=== PATIENT | female | born 1950 | race Caucasian/White ===

== ENCOUNTER 2020-09-21 11:38 | Outpatient (CLI) | payer MEDICARE, OTHER, SELFPAY ==
--- NOTE | 2020-09-21 11:44 | ECG_ITS ---
Measurements Intervals [place] Rate: 64 P: 52 MN: 172 QRS: 34 QRSD: 97 T: 37 QT: 410 QTc: 424 Interpretive Statements SINUS RHYTHM POSSIBLE LEFT ATRIAL ENLARGEMENT INCOMPLETE RIGHT BUNDLE BRANCH BLOCK DELAYED PRECORDIAL R/S TRANSITION BORDERLINE T WAVE ABNORMALITY- ANTERIOR LEADS BORDERLINE ECG Electronically Signed On 09-21-2020 12:04:19 DRAGLINE OPERATOR HELPER by Moody Chaidez D.O.
[2020-09-21 12:12] LABS: Hematocrit 37.8 % (37.0-47.0)
== END 2020-09-21 11:39 | disposition home or self-care (01) ==
LOC: ANHSURGERY 11:44
PROVIDERS: PCP Family Medicine; Visit Provider Obstetrics & Gynecology
DX: N95.0 Postmenopausal bleeding (principal); I10 Essential (primary) hypertension; Z01.818 Encounter for other preprocedural examination; I45.10 Unspecified right bundle-branch block
CPT/HCPCS: 36415; 85014; 85018; 93005

== ENCOUNTER → 2020-09-25 03:24 | Outpatient (CLI) | payer MEDICARE, OTHER, SELFPAY ==
[2020-09-25 20:35] LABS: SARS-CoV-2 RNA PCR Negative
== END ==
PROVIDERS: PCP Family Medicine; Visit Provider Obstetrics & Gynecology
DX: Z01.812 Encounter for preprocedural laboratory examination (principal); Z20.822 Contact with and (suspected) exposure to COVID-19
CPT/HCPCS: C9803; U0003; U0005

== ENCOUNTER 2020-09-28 01:22 | Day surgery (SDC) | payer MEDICARE, OTHER, SELFPAY ==
[2020-09-20 16:18] VITALS: BMI 25.8
--- NOTE | 2020-09-25 10:01 | PM.IMHP ---
H&P: HPI History of Present Illness Date/Time: 09/25/20 10:01 Chief Complaint: post menopausal bleeding Narrative: Lucia Davis is a 70 year old female is admitted for hysteroscopy and dilatation and curettage. She had some postmenopausal bleeding. She underwent replacement and in light of whose bleeding she is admitted to rule out pathologic cause. She has received the ACOG handout entitled hysteroscopy as well as dilatation curettage respectively. She had all questions answered. She asked to proceed Review of Systems Review of Systems: All systems reviewed & are unremarkable except as noted in HPI and below PMFSH Past Medical History Medical History Arthritis Body mass index (bmi) 28.0-28.9, adult (02/26/17) Ganglion cyst of left foot Hypothyroidism (acquired) Other disorders of lung Unspecified arthropathy, ankle and foot Surgical History Surgical History S/P cervical spinal fusion Family History Family History Father Family history of arthritis Family history of cataracts Family history of kidney disease Family history of dementia, Onset Age: 89 Mother Family history of chronic obstructive pulmonary disease, Onset Age: 85 Family history of osteoporosis Depression Asthma Cerebrovascular accident Other Hypertension Social History Social History Smoking status: Never smoker Alcohol intake: current Drinks per week: 5 Spiritual care concerns: No Meds Home Medications and Allergies Home Medications Medication Instructions Recorded Confirmed Type albuterol sulfate 90 mcg/actuation 1 puff INHALATION Q4H PRN 08/24/19 09/20/20 History aerosol inhaler alprazolam 0.25 mg tablet 0.25 mg PO DAILY 08/24/19 09/20/20 History atomoxetine 60 mg capsule 60 mg PO DAILY 08/24/19 09/20/20 History lisinopril 30 mg tablet 30 mg PO DAILY 08/24/19 09/20/20 History Synthroid 75 mcg tablet 75 mcg PO QAM 90 Days #90 tablet NS 01/11/20 09/20/20 Rx bupropion HCl 300 mg 24 hr tablet, 300 mg PO QAM 01/11/20 09/20/20 History extended release budesonide-formoterol HFA 160 See Rx Instructions .ROUTE 07/09/20 09/20/20 Rx mcg-4.5 mcg/actuation aerosol .COMPLEX 90 Days #30.6 g inhaler calcium carbonate-vitamin D3 1 tablet PO DAILY 09/20/20 09/20/20 History [Calcium + D] [id number]-[id number] 1 cap PO DAILY 09/20/20 09/20/20 History [krill oil] milk thistle 180 mg PO DAILY 09/20/20 09/20/20 History montelukast 10 mg PO HS 09/20/20 09/20/20 History multivitamin,vb-pylq-tsbrufwy 1 tablet PO DAILY 09/20/20 09/20/20 History [Complete Multivitamin] omeprazole 20 mg PO DAILY 09/20/20 09/20/20 History Allergies Allergy/AdvReac Type Severity Reaction Status Date / Time Sulfa (Sulfonamide Allergy Unknown Nausea and Verified 09/20/20 15:50 Antibiotics) Vomiting Exam Const: General: no acute distress Eyes: General: appearance normal, both eyes and all related structures Neck: Neck: supple and no JVD Thyroid: thyroid normal Resp: Effort & Inspection: normal respiratory effort Auscultation: clear to auscultation bilaterally Cardio: Rate: regular rate Rhythm: regular rhythm GI: Inspection: non-distended GI Palp: Yes Soft to palpation, No Tenderness to palpation present (GI) and No Guarding due to palpation present (GI) Auscultation: normal bowel sounds : General: Yes bladder normal to palpation External Female Exam: normal external appearance Speculum Exam - Vagina: normal vaginal discharge and No vaginal bleeding Speculum Exam - Cervix: nontender Bimanual exam- vagina & uterus: bladder normal to palpation and No Cervical tenderness present OB/external & speculum: No vaginal bleeding Skin: General skin exam:
--- NOTE | 2020-09-28 06:33 | WPDHPUPDATE1 ---
History and Physical Update Update Date/Time: 09/28/20 06:33 History and Physical has been reviewed, including an updated exam of the patient. There are NO changes in the patient's condition. Risks, benefits, and alternatives have been discussed and questions answered. Patient agrees to proceed with procedure.
[2020-09-28 07:37] VITALS: BP 150/73; PULSE 72; RESP 20; TEMP 36.6; O2SAT 100
[2020-09-28] MEDS: ACETAMINOPHEN 500 MG TABLET 1000 MG PO (07:59)
[2020-09-28] MEDS: LACTATED RINGERS 1,000 ML 30 ML IV CONT (08:00)
--- NOTE | 2020-09-28 08:59 | WPDANESEPPF ---
Anes - Initial Pre Proc Eval Procedure: Operation Date: 09/28/20 09:30 Proposed Procedures p Hysteroscopy Dilation and Curettage - Elan Mcdermott MD Date/Time: 09/28/20 08:59 Surgeon: Elan Mcdermott MD Pre Op Diagnosis: Post Menopausal Bleeding Patient Data Age: 70 Gender: F Height: 5 ft 6 in Weight: 72.6 kg Last Vital Signs Temp 97.8 F 09/28/20 07:37 Pulse 72 09/28/20 07:37 Resp 20 09/28/20 07:37 BP 150/73 H 09/28/20 07:37 Pulse Ox 100 09/28/20 07:37 Allergies Allergy/AdvReac Type Severity Reaction Status Date / Time Sulfa (Sulfonamide Allergy Unknown Nausea and Verified 09/28/20 08:15 Antibiotics) Vomiting oxycodone AdvReac Nausea and Verified 09/28/20 08:15 Vomiting Home Medications Medication Instructions Recorded Confirmed Type albuterol sulfate 90 mcg/actuation 1 puff INHALATION Q4H PRN 08/24/19 09/20/20 History aerosol inhaler alprazolam 0.25 mg tablet 0.25 mg PO DAILY 08/24/19 09/20/20 History atomoxetine 60 mg capsule 60 mg PO DAILY 08/24/19 09/20/20 History lisinopril 30 mg tablet 30 mg PO DAILY 08/24/19 09/28/20 History Synthroid 75 mcg tablet 75 mcg PO QAM 90 Days #90 tablet NS 01/11/20 09/28/20 Rx bupropion HCl 300 mg 24 hr tablet, 300 mg PO QAM 01/11/20 09/20/20 History extended release budesonide-formoterol HFA 160 See Rx Instructions .ROUTE 07/09/20 09/20/20 Rx mcg-4.5 mcg/actuation aerosol .COMPLEX 90 Days #30.6 g inhaler calcium carbonate-vitamin D3 1 tablet PO DAILY 09/20/20 09/20/20 History [Calcium + D] snban-[id number]-8-elp-pmp-zqyevt 1 cap PO DAILY 09/20/20 09/28/20 History [krill oil] milk thistle 180 mg PO DAILY 09/20/20 09/28/20 History montelukast 10 mg PO HS 09/20/20 09/28/20 History multivitamin,sc-lmph-nxzwfxfw 1 tablet PO DAILY 09/20/20 09/28/20 History [Complete Multivitamin] omeprazole 20 mg PO DAILY 09/20/20 09/28/20 History hydrocodone-acetaminophen 1 tablet PO Q6H PRN #20 tablet 09/28/20 Rx Patient hx anesthesia problems: none Family hx anesthesia problems: none PMFSH Past Medical History Medical History (Updated 09/28/20 @ 06:34 by Elan Mcdermott MD) Arthritis Body mass index (bmi) 28.0-28.9, adult (02/26/17) Ganglion cyst of left foot Hypothyroidism (acquired) Other disorders of lung Unspecified arthropathy, ankle and foot Surgical History Surgical History S/P cervical spinal fusion Family History Family History Father Family history of arthritis Family history of cataracts Family history of kidney disease Family history of dementia, Onset Age: 89 Mother Family history of chronic obstructive pulmonary disease, Onset Age: 85 Family history of osteoporosis Depression Asthma Cerebrovascular accident Other Hypertension Social History Social History Smoking status: Never smoker Alcohol intake: current Drinks per week: 5 Living arrangements: with family Spiritual care concerns: No Anes - Eval Final PreProcedure Day of Procedure 09/28/20 08:59 Patient weight: normal Heart: regular rate and rhythm Lungs: clear to auscultation Airway: Mallampati scale class II Neurological: alert and oriented Last oral intake: >/= 8 hours ASA classification: III Emergent: no Anesthetic plan: proceed Anesthesia type and monitoring: general GIVS and standard monitoring Informed Consent: The patient's anesthetic plan and its attendant risks and benefits were discussed with the patient/family/POA. Questions were solicited and answers provided to the satisfaction of the patient/family/POA.
--- NOTE | 2020-09-28 10:01 | PM.PROC ---
Procedure Note - Detailed Date of procedure: 09/28/20 Pre-op diagnosis: Post Menopausal Bleeding Surgeon: Elan Mcdermott MD Postop diagnosis: Postmenopausal bleeding Procedure: Hysteroscopy/dilatation curettage Anesthesia: IV sedation and local EBL: 5cc Complications: None Findings: A moderate amount of blood in the uterus which sounded to 8cm. No definitive evidence of pathology present to explain the bleeding. Each fallopian tube os appeared within normal limits Procedure description: The patient was prepped and draped in the normal sterile fashion and placed in the dorsal lithotomy position. Under excellent IV sedation weighted speculum was placed in the posterior fornix of vagina. Anterior lip of the cervix grasped with a single-tooth tenaculum. 2.5cc of 1% xylocaine anesthesia placed at 2, 4, 8, 10:00 a.m. of the cervix. The uterus sounded to 8cm. Serial dilatation with fragmented dilators performed followed by passage of the 5mm visualizing hysteroscope using normal saline as visualizing medium. Fair amount of clots and blood was seen. After this had been rinsed and remove the uterus was scraped over the entire 360? until a good grating sound was heard. Blood loss was estimated at5cc. All sponge, needle, instrument counts were correct. There were no immediate complications
[2020-09-28 10:04] VITALS: BP 144/76; PULSE 66; RESP 18; O2SAT 98
[2020-09-28 10:34] VITALS: BP 156/76; PULSE 64; RESP 18; O2SAT 97
--- NOTE | 2020-09-28 10:47 | SUR.OPER ---
Hysteroscopy fluid intake 100 ml output- 70 ml
[2020-09-28 11:04] VITALS: BP 166/76; PULSE 62; RESP 18
[2020-09-28] MEDS: oxyCODONE HCL (*CRX) 5 MG TAB IR PO (11:17)
[2020-09-28 11:20] VITALS: BP 166/71; PULSE 62; RESP 18
== END 2020-09-28 11:30 | disposition home or self-care (01) ==
PROVIDERS: PCP Family Medicine; Visit Provider Obstetrics & Gynecology
PROC: 0U5B8ZZ Destruction of Endometrium, Via Natural or Artificial Opening Endoscopic (ICD-10-PCS; CPT 58563; principal; 2020-09-28 09:30)
DX: N95.0 Postmenopausal bleeding (principal); N85.8 Other specified noninflammatory disorders of uterus; E03.9 Hypothyroidism, unspecified; J98.4 Other disorders of lung; Z98.1 Arthrodesis status
CPT/HCPCS: 58558; 88305; A9270; J2250; J2704; J3010; J7120

== ENCOUNTER → 2020-11-27 00:25 | Outpatient (CLI) | payer MEDICARE, OTHER, SELFPAY ==
[2020-11-27 20:46] LABS: SARS-CoV-2 RNA PCR Negative
== END ==
PROVIDERS: PCP Family Medicine; Visit Provider Obstetrics & Gynecology
DX: Z01.812 Encounter for preprocedural laboratory examination (principal); Z20.822 Contact with and (suspected) exposure to COVID-19
CPT/HCPCS: C9803; U0003; U0005

== ENCOUNTER 2020-11-28 10:37 | Outpatient (CLI) | payer MEDICARE, OTHER, SELFPAY ==
[2020-11-28 10:57] LABS: Basophils Absolute Auto 0.1 K/mm3 (0.0-0.1); Basophils Percent Auto 1.7 % (0.2-1.2); Eosinophils Absolute Auto 0.1 K/mm3 (0-0.3); Eosinophils Percent Auto 1.9 % (0-4.4); Hematocrit 37.3 % (37.0-47.0); Hemoglobin 12.8 g/dL (12.0-15.0); Immature Granulocyte Absolute 0.02 K/mm3 (0.00-0.031); Immature Granulocyte Percent A 0.4 % (0-0.5); Lymphocytes Absolute Auto 1.46 K/mm3 (0.9-3.2); Lymphocytes Percent Auto 28.1 % (18.3-44.2); Mean Corpuscular HGB Conc 34.3 g/dl (32-36); Mean Corpuscular Hemoglobin 33.6 pg (26-34); Mean Corpuscular Volume 97.9 fl (80-100); Monocytes Absolute Auto 0.5 K/mm3 (0.1-0.6); Monocytes Percent Auto 10.2 % (2.6-8.5); Neutrophils Percent Auto 57.7 % (45.5-73.1); Platelet Count Result 213 k/mm3 (150-375); Red Blood Count 3.81 M/mm3 (4.2-5.4); Red Cell Distribution Width 12.8 % (11.5-14.5); White Blood Count 5.2 K/mm3 (4.5-10.0)
== END 2020-11-28 10:38 | disposition home or self-care (01) ==
LOC: ANHSURGERY 10:43
PROVIDERS: PCP Family Medicine; Visit Provider Obstetrics & Gynecology
DX: N95.0 Postmenopausal bleeding (principal)
CPT/HCPCS: 36415; 85025; 86850; 86900; 86901

== ENCOUNTER 2020-11-30 01:30 | Day surgery (SDC) | payer MEDICARE, OTHER, SELFPAY ==
[2020-11-26 10:57] VITALS: BMI 25.0
--- NOTE | 2020-11-27 10:24 | PM.IMHP ---
H&P: HPI History of Present Illness Date/Time: 11/27/20 10:24 70-year-old 2 para 2 admitted for robotic total hysterectomy and bilateral salpingo-oophorectomy secondary to postmenopausal bleeding. Pathology under hysteroscopy benign. Risks and benefits of procedure reviewed. Chief Complaint: Postmenopausal bleeding Review of Systems Review of Systems: All systems reviewed & are unremarkable except as noted in HPI and below PMFSH Past Medical History Medical History Arthritis Body mass index (bmi) 28.0-28.9, adult (02/26/17) Ganglion cyst of left foot Hypothyroidism (acquired) Other disorders of lung Unspecified arthropathy, ankle and foot Surgical History Surgical History S/P cervical spinal fusion Family History Family History Father Family history of arthritis Family history of cataracts Family history of kidney disease Family history of dementia, Onset Age: 89 Mother Family history of chronic obstructive pulmonary disease, Onset Age: 85 Family history of osteoporosis Depression Asthma Cerebrovascular accident Other Hypertension Social History Social History Smoking status: Never smoker Alcohol intake: current Drinks per week: 7 Spiritual care concerns: No Meds Home Medications and Allergies Home Medications Medication Instructions Recorded Confirmed Type albuterol sulfate 90 mcg/actuation 1 puff INHALATION Q4H PRN 08/24/19 11/26/20 History aerosol inhaler alprazolam 0.25 mg tablet 0.25 mg PO DAILY 08/24/19 11/26/20 History lisinopril 30 mg tablet 30 mg PO DAILY 08/24/19 11/26/20 History bupropion HCl 300 mg 24 hr tablet, 300 mg PO QAM 01/11/20 11/26/20 History extended release budesonide-formoterol HFA 160 See Rx Instructions .ROUTE 07/09/20 11/26/20 Rx mcg-4.5 mcg/actuation aerosol .COMPLEX 90 Days #30.6 g inhaler calcium carbonate-vitamin D3 1 tablet PO DAILY 09/20/20 11/26/20 History [Calcium + D] [id number]-mnlly-6-cqq-kxi-ppsshf 1 cap PO DAILY 09/20/20 11/26/20 History [krill oil] milk thistle 180 mg PO DAILY 09/20/20 11/26/20 History montelukast 10 mg PO HS 09/20/20 11/26/20 History multivitamin,kk-uqgp-tsygqlpx 1 tablet PO DAILY 09/20/20 11/26/20 History [Complete Multivitamin] omeprazole 20 mg PO DAILY 09/20/20 11/26/20 History hydrocodone-acetaminophen 1 tablet PO Q6H PRN #20 tablet 09/28/20 11/26/20 Rx Synthroid 75 mcg tablet 75 mcg PO QAM 90 Days #90 tablet NS 10/10/20 11/26/20 Rx atomoxetine [Strattera] 60 mg PO DAILY 11/26/20 11/26/20 History celecoxib [Celebrex] 100 mg PO BID 11/26/20 11/26/20 History Allergies Allergy/AdvReac Type Severity Reaction Status Date / Time Sulfa (Sulfonamide Allergy Unknown Nausea and Verified 11/26/20 09:28 Antibiotics) Vomiting oxycodone AdvReac Nausea and Verified 11/26/20 09:28 Vomiting Exam Const: General: no acute distress Eyes: General: appearance normal, both eyes and all related structures Neck: Neck: supple and no JVD Thyroid: thyroid normal Resp: Effort & Inspection: normal respiratory effort Auscultation: clear to auscultation bilaterally Cardio: Rate: regular rate Rhythm: regular rhythm GI: Inspection: non-distended GI Palp: Yes Soft to palpation, No Tenderness to palpation present (GI) and No Guarding due to palpation present (GI) Auscultation: normal bowel sounds : General: Yes bladder normal to palpation External Female Exam: normal external appearance Speculum Exam - Vagina: normal vaginal discharge and No vaginal bleeding Speculum Exam - Cervix: nontender Bimanual exam- vagina & uterus: bladder normal to palpation and No Cervical tenderness present OB/external & speculum: No vaginal bleeding Skin: General sk
--- NOTE | 2020-11-29 12:38 | WPDANESEPPF ---
Anes - Initial Pre Proc Eval Procedure: Operation Date: 11/30/20 07:30 Proposed Procedures p Robotic Assisted Total Vaginal Hysterectomy, Bilateral Salpingo-Oophorectomy - Elan Mcdermott MD Date/Time: 11/29/20 12:38 Surgeon: Elan Mcdermott MD Pre Op Diagnosis: post menopausal bleeding Patient Data Age: 70 Gender: F Height: 1.68 m Weight: 70.35 kg Allergies Allergy/AdvReac Type Severity Reaction Status Date / Time Sulfa (Sulfonamide Allergy Unknown Nausea and Verified 11/26/20 09:28 Antibiotics) Vomiting oxycodone AdvReac Nausea and Verified 11/26/20 09:28 Vomiting Home Medications Medication Instructions Recorded Confirmed Type albuterol sulfate 90 mcg/actuation 1 puff INHALATION Q4H PRN 08/24/19 11/30/20 History aerosol inhaler alprazolam 0.25 mg tablet 0.25 mg PO DAILY 08/24/19 11/30/20 History lisinopril 30 mg tablet 30 mg PO DAILY 08/24/19 11/30/20 History bupropion HCl 300 mg 24 hr tablet, 300 mg PO QAM 01/11/20 11/30/20 History extended release budesonide-formoterol HFA 160 See Rx Instructions .ROUTE 07/09/20 11/30/20 Rx mcg-4.5 mcg/actuation aerosol .COMPLEX 90 Days #30.6 g inhaler calcium carbonate-vitamin D3 1 tablet PO DAILY 09/20/20 11/30/20 History [Calcium + D] [id number]-mimub-6-onn-sde-wfcrsk 1 cap PO DAILY 09/20/20 11/30/20 History [krill oil] milk thistle 180 mg PO DAILY 09/20/20 11/30/20 History montelukast 10 mg PO HS 09/20/20 11/30/20 History multivitamin,og-olnu-qxbtjavk 1 tablet PO DAILY 09/20/20 11/30/20 History [Complete Multivitamin] omeprazole 20 mg PO DAILY 09/20/20 11/30/20 History hydrocodone-acetaminophen 1 tablet PO Q6H PRN #20 tablet 09/28/20 11/26/20 Rx Synthroid 75 mcg tablet 75 mcg PO QAM 90 Days #90 tablet NS 10/10/20 11/30/20 Rx atomoxetine [Strattera] 60 mg PO DAILY 11/26/20 11/30/20 History celecoxib [Celebrex] 100 mg PO BID 11/26/20 11/30/20 History oxycodone-acetaminophen [Percocet] 1 tablet PO Q4H PRN #30 tablet 11/30/20 Rx Patient hx anesthesia problems: none Family hx anesthesia problems: none PMFSH Past Medical History Medical History (Updated 11/30/20 @ 06:14 by Elan Mcdermott MD) Anxiety Arthritis Asthma Body mass index (bmi) 28.0-28.9, adult (02/26/17) Depression Ganglion cyst of left foot GERD (gastroesophageal reflux disease) Hypertension Hypothyroidism (acquired) Other disorders of lung PTSD (post-traumatic stress disorder) Unspecified arthropathy, ankle and foot Surgical History Surgical History (Updated 11/30/20 @ 06:56 by Ramon Flores DO) S/P cervical spinal fusion C3-7 Family History Family History Father Family history of arthritis Family history of cataracts Family history of kidney disease Family history of dementia, Onset Age: 89 Mother Family history of chronic obstructive pulmonary disease, Onset Age: 85 Family history of osteoporosis Depression Asthma Cerebrovascular accident Other Hypertension Social History Social History Smoking status: Never smoker Alcohol intake: current Drinks per week: 7 Living arrangements: with family Spiritual care concerns: No Anes - Eval Final PreProcedure Day of Procedure 11/29/20 12:38 Patient weight: normal Heart: regular rate and rhythm Lungs: clear to auscultation and normal air movement Airway: Mallampati scale class III and special considerations poor extension Neurological: alert and oriented Last oral intake: >/= 8 hours ASA classification: III Emergent: no Anesthetic plan: proceed Anesthesia type and monitoring: general ETT and standard monitoring Informed Consent: The patient's anesthetic plan and its attendant risks and benefits were discussed with the patient/family/POA. Questions were solicited and answers provided to the satisfaction of the patient/family/PO
[2020-11-30] VITALS (10 sets, daily range): BP systolic 110–145; BP diastolic 59–83; PULSE 60–68; RESP 12–18; TEMP 36.4–36.8; O2SAT 94–100
--- NOTE | 2020-11-30 05:51 | WPDHPUPDATE1 ---
History and Physical Update Update Date/Time: 11/30/20 05:51 History and Physical has been reviewed, including an updated exam of the patient. There are NO changes in the patient's condition. Risks, benefits, and alternatives have been discussed and questions answered. Patient agrees to proceed with procedure.
[2020-11-30] MEDS: ACETAMINOPHEN 500 MG TABLET 1000 MG PO (06:45)
[2020-11-30] MEDS: LACTATED RINGERS 1,000 ML 30 ML IV CONT ×2 (06:45→08:41)
[2020-11-30] MEDS: KETOROLAC 15 MG/ML VIAL (*BKC) IV PUSH ×2 (06:46→12:54)
[2020-11-30] MEDS: ceFAZolin 2 GM/D5W 50 ML 2 GM/50 ML BAG IVPB (07:20)
--- NOTE | 2020-11-30 08:32 | P.OP_ITS ---
Procedure Note - Detailed Date of procedure: 11/30/20 Pre-op diagnosis: post menopausal bleeding Surgeon: Elan Mcdermott MD Postop diagnosis: Postmenopausal bleeding Procedure: Robotic total vaginal hysterectomy bilateral salpingo-oophorectomy Anesthesia: General endotracheal EBL: 25cc Findings: Moderate size uterus normal-appearing ovaries and tubes Complications: None Description of procedure the patient was prepped and draped in the normal sterile fashion placed in the dorsal lithotomy position. Under excellent general endotracheal anesthesia weighted speculum placed in posterior fornix of vagina. Anterior lip of the cervix grasped with a single-tooth tenaculum and the uterus sounded 8cm. Serial dilatation with fragmented dilators performed followed by passage of the 6. MELLISA and the number 3 cold cup. Next the 16 Wolof catheter placed in the bladder drained of clear urine. The remainder the instruments removed and gloves were changed. A supraumbilical incision made in the [place] needle passed in the abdomen. The abdomen filled with CO2 gas [id number]. The 8mm trocar advanced in the abdomen the downside visualized no injury seen patient. The patient placed in Trendelenburg and right and left lateral quadrant incisions made. The 8mm trocars were advanced under direct visualization assuring no injury. The right upper quadrant incision made 8mm trocar advanced in the abdomen under direct visualization assuring no injury. The robot was docked. Attention was turned to the funeral prearrangement counselor next. The left round ligament was grasped, burned, cut. Anteriorly bladder flap was formed by sharply dissecting across the peritoneum and reflecting the bladder caudally away from the uterus and cervix to the opposite round ligament was clamped, burned, cut. Next the left infundibulopelvic structures were skeletonized. These were serially clamped, burned, cut and brought the level of areas of cut round ligament. In like fashion to remove the right ovary and tube the infundibulopelvic structure was skeletonized. This was clamped, burned, cut and brought to the level of reason cut round ligament. The cardinal broad ligaments were then skeletonized and serially clamped burned and cut and brought down the lateral edge of the uterus until the uterine vessels could be seen on the left. These were large and tortuous there were individually clamped, burned, cut. In like fashion the cardinal and broad ligaments on the right were serially skeletonized. These were clamped, burned, cut until the vessels on the right could be seen these vessels were large and tortuous and. There were clamped, burned, cut. Excellent blanching the uterus was noted. The a colpotomy incision was then made in the cervix uterus and ovaries and tubes removed through the vagina. The vagina was then closed with continuous running 0V lock from lateral edge to lateral edge back to the midline. Irrigation undertaken to clear blood loss estimated 25cc the all pedicles appeared dry and the robot was undocked. The gas removed from the abdomen and the trocars removed. The incisions closed with 4 O Monocryl and glue. The patient was awakened. All sponge, needle, instrument counts were correct. There were no immediate complications
[2020-11-30] MEDS: fentaNYL CITRATE INJ (*CRX) 100 MCG/2 ML VIAL 25 MCG IV PUSH ×3 (08:50→09:05)
[2020-11-30] MEDS: DEXTROSE 5%/LACTATED RINGERS 1,000 ML 125 ML IV CONT (10:28)
[2020-11-30] MEDS: ENOXAPARIN 40 MG/0.4 ML SYRINGE SUB-Q (10:31)
[2020-11-30] MEDS: oxyCODONE/ACETAMINOPHEN (*CRX) 5-325 MG TABLET 1 TABLET PO ×3 (12:18→21:11)
--- NOTE | 2020-11-30 14:42 | PC.NURSE ---
Pt called out stating she felt like she was having an asthma attack. Upon entering the room she was pink and talking to her with no distress noted. She stated that she had the heating pad on her abdomen/chest and she felt like that was making it hard to breathe, we took the heating pad off and she stated that helped a lot but she wanted to go ahead and take her inhaler which she had at the bedside. I also listened to her lungs, lung sounds were clear and pulse ox was 98%. Pt states she feels better, will continue to monitor symptoms and she will call out if she feels like that again
[2020-11-30] MEDS: DOCUSATE SODIUM 100 MG CAPSULE PO (20:08)
[2020-11-30] MEDS: IBUPROFEN 600 MG TABLET PO (20:08)
[2020-12-01] VITALS: BP 141/78; PULSE 70; RESP 16; TEMP 36.9; O2SAT 98
[2020-12-01] MEDS: oxyCODONE/ACETAMINOPHEN (*CRX) 5-325 MG TABLET 1 TABLET PO ×3 (01:11→09:57)
[2020-12-01 04:00] VITALS: BP 134/69; PULSE 65; RESP 16; TEMP 36.4; O2SAT 97
[2020-12-01 05:27] LABS: Basophils Absolute Auto 0.1 K/mm3 (0.0-0.1); Basophils Percent Auto 0.7 % (0.2-1.2); Eosinophils Percent Auto 0.4 % (0-4.4); Hematocrit 30.9 % (37.0-47.0); Hemoglobin 10.7 g/dL (12.0-15.0); Immature Granulocyte Absolute 0.02 K/mm3 (0.00-0.031); Immature Granulocyte Percent A 0.2 % (0-0.5); Lymphocytes Absolute Auto 1.73 K/mm3 (0.9-3.2); Lymphocytes Percent Auto 20.3 % (18.3-44.2); Mean Corpuscular HGB Conc 34.6 g/dl (32-36); Mean Corpuscular Hemoglobin 33.4 pg (26-34); Mean Corpuscular Volume 96.6 fl (80-100); Mean Platelet Volume 9.4 fl (7.4-10.4); Monocytes Absolute Auto 0.7 K/mm3 (0.1-0.6); Monocytes Percent Auto 8.6 % (2.6-8.5); Neutrophils Percent Auto 69.8 % (45.5-73.1); Platelet Count Result 196 k/mm3 (150-375); Red Cell Distribution Width 12.3 % (11.5-14.5); White Blood Count 8.5 K/mm3 (4.5-10.0)
--- NOTE | 2020-12-01 08:55 | PM.GYNPNOP ---
GENERAL NEUROLOGIST - A/P Postoperative Procedures: Procedures Operation Date: 11/30/20 07:30 Actual Procedure Side Surgeon p Robotic Assisted Total Vaginal Hysterectomy, Bilateral Salpingo-Oophorectomy Elan Mcdermott MD A: POD#1, doing well. P: Home to f/u 2 weeks. Time Spent With Patient Time with patient: less than 15 minutes GENERAL NEUROLOGIST- PN:Subj Post-Op Subjective Date/time seen: 12/01/20 08:55 Interval history: Pain OK. Tolerating diet. Voiding. Would like to go home. Exam Narrative: Exam Narrative: AVSS I/O OK ABD soft, nontender. Incisions c/d/i. EXT nontender GENERAL NEUROLOGIST - PN: Obj Data Vital Signs Vital Signs: Vital Signs - 24 hr 11/30/20 09:10 11/30/20 09:25 11/30/20 09:40 Temperature Pulse Rate 62 62 62 Respiratory Rate 14 12 12 Blood Pressure 131/66 127/64 134/70 Pulse Oximetry 100 96 94 11/30/20 10:00 11/30/20 13:00 11/30/20 16:13 Temperature 36.4 C L 36.8 C 36.7 C Pulse Rate 62 68 67 Respiratory Rate 16 16 18 Blood Pressure 130/83 124/65 129/70 Pulse Oximetry 96 96 11/30/20 20:00 12/01/20 00:00 12/01/20 04:00 Temperature 36.8 C 36.9 C 36.4 C Pulse Rate 66 70 65 Respiratory Rate 16 16 16 Blood Pressure 145/81 H 141/78 H 134/69 Pulse Oximetry 99 98 97 Intake/Output Intake/Output: Intake & Output 11/28/20 11/29/20 11/30/20 12/01/20 23:59 23:59 23:59 23:59 Intake Total 3375 900 Output Total 3225 2650 Balance 150 -1750 Meds/Results Medications: Active Medications Generic Name Dose Route Start Last Admin Trade Name Freq PRN Reason Stop Dose Admin Docusate Sodium 100 mg 11/30/20 09:47 11/30/20 20:08 Docusate Sodium 100 Mg Capsule PO 100 mg BID WESLEY Administration Enoxaparin Sodium 40 mg 11/30/20 09:47 11/30/20 10:31 Enoxaparin 40 Mg/0.4 Ml Syringe SUB-Q 40 mg DAILY WESLEY Administration Dextrose/Lactated Ringer's 1,000 mls @ 125 mls/hr 11/30/20 09:47 12/01/20 04:28 Dextrose 5%/Lactated Ringers IV CONT Not Given .Q8H WESLEY Ibuprofen 600 mg 11/30/20 09:47 11/30/20 20:08 Ibuprofen 600 Mg Tablet PO 600 mg Q6H PRN Administration Cramping Ketorolac Tromethamine 15 mg 11/30/20 11:57 11/30/20 12:54 Ketorolac 15 Mg/Ml Vial (*Bkc) IV PUSH 15 mg Q6H PRN Administration Pain Rated 4-6 Naloxone HCl 0.1 mg 11/30/20 09:47 Naloxone Hcl 0.4 Mg/Ml Vial IV PUSH Q2M PRN Respiratory rate less than 10 Ondansetron HCl 4 mg 11/30/20 09:47 Ondansetron Inj 4 Mg/2 Ml Vial IV PUSH Q6H PRN Nausea And Vomiting Oxycodone/Acetaminophen 1 tablet 11/30/20 11:53 12/01/20 05:30 Oxycodone/Acetaminophen (*Crx) 5-325 Mg Tablet PO 1 tablet Q4H PRN Administration Pain Rated 7-10 Labs CBC & Chem 7: 12/01/20 04:20 Labs: Laboratory Results - last 24 hr 12/01/20 04:20 WBC 8.5 RBC 3.20 L Hgb 10.7 L Hct 30.9 L MCV 96.6 MCH 33.4 MCHC 34.6 RDW 12.3 Plt Count 196 MPV 9.4 Immature Gran % (Auto) 0.2 Neut % (Auto) 69.8 Lymph % (Auto) 20.3 [place] % (Auto) 8.6 H Eos % (Auto) 0.4 Baso % (Auto) 0.7 Lymph # (Auto) 1.73 [place] # (Auto) 0.7 H Eos # (Auto) 0.0 Baso # (Auto) 0.1 Abs Immat Gran (auto) 0.02 Absolute Neuts (auto) 6.0 Absolute Nucleated RBC 0.0 Nucleated RBC % 0.0
--- NOTE | 2020-12-01 08:56 | P.DS_ITS ---
DS: Admitting Diagnosis Admitting Diagnosis Admitting Diagnosis: Postmenopausal bleeding DS: Discharge Diagnosis Discharge Diagnosis (1) Postmenopausal bleeding: Code(s): N95.0 - Postmenopausal bleeding Status: Acute DS: Summary Hospital Course Hospital Course: Admitted to the hospital on date of scheduled surgery. Please see op note for details. Did well postoperatively and was able to go home. DS: Data Data Completed and Pending Pending studies at discharge: Pending at discharge 11/30/20 07:49 Surgical [PTH] Routine Labs on day of discharge: Labs from last 24 hours 12/01/20 04:20 WBC 8.5 RBC 3.20 L Hgb 10.7 L Hct 30.9 L MCV 96.6 MCH 33.4 MCHC 34.6 RDW 12.3 Plt Count 196 MPV 9.4 Immature Gran % (Auto) 0.2 Neut % (Auto) 69.8 Lymph % (Auto) 20.3 [place] % (Auto) 8.6 H Eos % (Auto) 0.4 Baso % (Auto) 0.7 Lymph # (Auto) 1.73 [place] # (Auto) 0.7 H Eos # (Auto) 0.0 Baso # (Auto) 0.1 Abs Immat Gran (auto) 0.02 Absolute Neuts (auto) 6.0 Absolute Nucleated RBC 0.0 Nucleated RBC % 0.0 Discharge Plan Discharge Patient Disposition: Home, Self-Care Discharge Instructions: Call or return if temperature above 100.4? F, increased abdominal pain, increased vaginal bleeding or any new problems. Stand Alone Forms: General Discharge Instructions Discharge Medications: New oxycodone-acetaminophen [Percocet] 5-325 mg tablet 1 tablet PO Q4H PRN (Reason: pain) Qty: 30 RF: 0 Continued bupropion HCl [Wellbutrin XL] 300 mg tablet extended release 24 hr 300 mg PO QAM RF: 0 omeprazole 20 mg Tablet,Delayed Release (Dr/Ec) 20 mg PO DAILY RF: 0 montelukast 10 mg tablet 10 mg PO HS RF: 0 milk thistle 180 mg Capsule 180 mg PO DAILY RF: 0 calcium carbonate-vitamin D3 600 mg(1,500mg) -200 unit Tablet 1 tablet PO DAILY RF: 0 multivitamin,ug-gthl-agsmxxqk Tablet 1 tablet PO DAILY RF: 0 ipgwc-tunhp-[id number]-uuc-qnq-jqqmwl [krill oil] 278-28-43-50 mg Capsule 1 cap PO DAILY RF: 0 atomoxetine [Strattera] 60 mg Capsule 60 mg PO DAILY RF: 0 celecoxib [Celebrex] 100 mg Capsule 100 mg PO BID RF: 0 lisinopril 30 mg tablet 30 mg PO DAILY RF: 0 albuterol sulfate [Ventolin HFA] 90 mcg/actuation HFA aerosol inhaler 1 puff INHALATION Q4H PRN (Reason: SOB) RF: 0 alprazolam [Xanax] 0.25 mg tablet 0.25 mg PO DAILY RF: 0 budesonide-formoterol [Symbicort] 160-4.5 mcg/actuation HFA aerosol inhaler See Rx Instructions .ROUTE .COMPLEX 90 Days Qty: 30.6 RF: 2 levothyroxine [Synthroid] 75 mcg tablet 75 mcg PO QAM 90 Days Qty: 90 RF: 1 Discontinued hydrocodone-acetaminophen 5-300 mg tablet 1 tablet PO Q6H PRN (Reason: pain) Qty: 20 RF: 0
[2020-12-01 09:00] VITALS: BP 130/65; PULSE 66; RESP 18; TEMP 37; O2SAT 95
--- NOTE | 2020-12-01 09:34 | WPDANESPN ---
Anes - Prog Note Post-Op Date/Time: 12/01/20 09:34 Cardiovascular status: normal Respiratory status: normal Airway patency: baseline Mental status: baseline Post-Op hydration status: normal Vital Signs: Last Vital Signs Temp 36.4 C 12/01/20 04:00 Pulse 65 12/01/20 04:00 Resp 16 12/01/20 04:00 BP 134/69 12/01/20 04:00 Pulse Ox 97 12/01/20 04:00 Pain Score (VAS): 0/10. Patient resting in bed at time of assessment, appears comfortable. I/O: Intake & Output 11/30/20 12/01/20 12/01/20 23:59 07:59 15:59 Intake Total 2275 900 Output Total 1850 2650 Balance 425 -1750 Laboratory Tests 12/01/20 04:20 12/01/20 04:20 WBC 8.5 RBC 3.20 L Hgb 10.7 L Hct 30.9 L MCV 96.6 MCH 33.4 MCHC 34.6 RDW 12.3 Plt Count 196 MPV 9.4 Immature Gran % (Auto) 0.2 Neut % (Auto) 69.8 Lymph % (Auto) 20.3 [place] % (Auto) 8.6 H Eos % (Auto) 0.4 Baso % (Auto) 0.7 Lymph # (Auto) 1.73 [place] # (Auto) 0.7 H Eos # (Auto) 0.0 Baso # (Auto) 0.1 Abs Immat Gran (auto) 0.02 Absolute Neuts (auto) 6.0 Absolute Nucleated RBC 0.0 Nucleated RBC % 0.0 Post-procedural complaints: none Patient Feedback: Patient satisfied with anesthetic care.
[2020-12-01] MEDS: DOCUSATE SODIUM 100 MG CAPSULE PO (09:57)
[2020-12-01] MEDS: IBUPROFEN 600 MG TABLET PO (09:58)
[2020-12-01] MEDS: ENOXAPARIN 40 MG/0.4 ML SYRINGE SUB-Q (09:59)
== END 2020-12-01 11:55 | disposition home or self-care (01) ==
LOC: ANHSURGERY 06:14 → ANHOB2 09:48
PROVIDERS: PCP Family Medicine; Visit Provider Obstetrics & Gynecology
PROC: (CPT 58552; principal; 2020-11-30 07:30)
DX: N95.0 Postmenopausal bleeding (principal); N80.0 Endometriosis of uterus; M19.90 Unspecified osteoarthritis, unspecified site; Z98.1 Arthrodesis status; E03.9 Hypothyroidism, unspecified; Z79.51 Long term (current) use of inhaled steroids
CPT/HCPCS: 58552; S2900; 36415; 85025; 88307; 99199; A9270; J0690; J1100; J1650; J1885; J2405; J2704; J2710; J3010; J7030; J7120; J7121